=== PATIENT | female | born 1990 ===

== ENCOUNTER 2022-05-29 01:29 | Emergency (ER) | payer OTHER, SELFPAY ==
--- NOTE | ~2022-05-29 | XR_ITS ---
EXAMINATION: XR HAND, RIGHT CLINICAL INFORMATION: Right middle finger injury COMPARISON: None TECHNIQUE: PA, lateral, and oblique views of the right hand. FINDINGS: Imaging limited by patient cooperation. No fracture or dislocation. Alignment maintained. Joint spaces appear maintained. The soft tissues appear unremarkable. No radiopaque foreign body. XR/XR hand RT min 3V IMPRESSION: No fracture or malalignment. No radiopaque foreign body.
[2022-05-29 01:36] VITALS: BP 120/90; BP 135/85; PULSE 103; PULSE 120; RESP 18; TEMP 36.8; O2SAT 100; O2SAT 99; BMI 27.3
--- NOTE | 2022-05-29 02:01 | ED.WOUNDLAC ---
HPI - Wound/Laceration General Chief Complaint: Wound/Laceration Stated Complaint: lac on knuckles Time Seen by Provider: 05/29/22 01:56 Source: patient Mode of arrival: EMS Limitations: no limitations History of Present Illness HPI narrative: Patient apparently after having few drinks in anger was swinging metal isai and smashing car window somehow got superficial small laceration on the dorsum of the right middle finger Related Data Allergies Allergy/AdvReac Type Severity Reaction Status Date / Time No Known Allergies Allergy Unverified 01/24/20 19:07 [No Known Allergies*] Review of Systems Review of Systems: Yes all other systems are reviewed and are negative PMFSH Social History Social History Advance Directives: No Advance Directives Information Provided: No Physical Exam Vital Signs: Vital Signs: Last Vital Signs Temp 98.3 F 05/29/22 02:05 Pulse 106 H 05/29/22 02:05 Resp 18 05/29/22 02:05 BP 128/94 H 05/29/22 02:05 Pulse Ox 99 05/29/22 01:36 O2 Del Method 05/29/22 02:05 BMI result Body Mass Index 27.3 Appearance: Alert. Oriented X3. No acute distress. Intoxicated Eyes: PERRLA, No Nystagmus ENT: Pharynx normal. Oral Mucosa moist Neck: Normal inspection. Neck supple. CVS: Normal heart rate and rhythm. Pulses normal. Respiratory: No respiratory distress. Equal air entry bilateral, Abdomen: Soft and nontender. Bowel sounds are present, no mass palpable, no CVA tenderness Skin: Skin warm and dry. Normal skin color. Normal skin turgor. Extremities: No lower extremity edema. No calf tenderness right index finger 4 mm superficial laceration at dorsum of proximal interphalangeal joint Neuro: Oriented X 3. No motor deficit. Medical Decision Making Lab Data Labs: Lab Results 05/29/22 Range/Units 02:10 HIV 1&2 Ab/P24 Ag 4thGn Nonreactive (Nonreactive) Procedures Laceration Laceration 1: Site: hand (Third finger) Side (If applicable): right Size (cm): 0.3 Description: linear Depth: simple, single layer Technique: other (Dermabond) Discharge Plan Discharge Clinical Impression: Laceration, Avulsion of skin Patient Disposition: Home, Self-Care Instructions: Finger Laceration (ED) Additional Instructions: Local care as advised Wear the finger splint for support until he is completely Interventions: ED Discharge Assessment Last Done: 05/29/22 03:04 Discharge Date/Time: 05/29/22 03:04
[2022-05-29 02:05] VITALS: BP 128/94; PULSE 106; RESP 18; TEMP 36.8
--- NOTE | 2022-05-29 03:03 | PC.NURSE ---
Discharge instructions reviewed with pt. Pt verbalizes understanding.
[2022-05-29 03:07] LABS: HIV AB/AG Nonreactive (Nonreactive); HIV Num 1 0.06 S/CO (0.00-0.99)
[2022-05-29 09:05] LABS: HBc Num1 0.17 S/CO (0.00-0.79); HBsAGNum1 0.57 S/CO (0.00-0.99); Hepatitis B Core Antibody Nonreactive (Nonreactive); Hepatitis B Surface Antigen Negative (Negative); ~HepC Num1 0.09 S/CO (0.00-0.79)
[2022-05-29 09:33] LABS: HBS Num1 92.89 mIU/mL (0-7.99); ~Hepatitis B Surface Antibody REACTIVE (Nonreactive)
[2022-05-29 12:40] LABS: Hepatitis C Ab Exposure Source NonReactive (Nonreactive)
== END 2022-05-29 03:04 | disposition home or self-care (01) ==
PROVIDERS: Emergency Provider Internal Medicine
DX: S61.212A Laceration without foreign body of right middle finger without damage to nail, initial encounter (principal); W25.XXXA Contact with sharp glass, initial encounter; Y93.89 Activity, other specified; Y92.414 Local residential or business street as the place of occurrence of the external cause; Y99.9 Unspecified external cause status
CPT/HCPCS: 12001; 29130; 36415; 73130; 86803; 99283; 99284

== ENCOUNTER 2022-07-07 21:43 | Emergency (ER) | payer OTHER, SELFPAY ==
[2022-07-07 22:26] VITALS: BP 115/65; PULSE 72; RESP 16; TEMP 36.8; O2SAT 99; BMI 27.8
== END 2022-07-08 07:01 | disposition left against medical advice (07) ==
PROVIDERS: Emergency Provider Emergency Medicine; PCP Internal Medicine
DX: M54.50 Low back pain, unspecified (principal)
CPT/HCPCS: 99281

== ENCOUNTER 2023-11-11 18:05 | Emergency (ER) | payer MEDICAID, SELFPAY ==
[2023-11-11 18:12] VITALS: BP 125/81; PULSE 119; RESP 17; TEMP 37.6; O2SAT 98; BMI 34.5
--- NOTE | 2023-11-11 18:22 | ED_ITS ---
HPI - Nausea/Vomiting/Diarrhea General Chief complaint: Nausea/Vomiting/Diarrhea Stated complaint: Vomiting/Headache Time Seen by Provider: 11/11/23 19:29 Source: patient Mode of arrival: ambulatory Limitations: no limitations History of Present Illness ED Provider: Cary CRAVEN HPI Narrative: 32-year-old female presents with nausea, vomiting, fatigue, malaise, myalgias, headache (diffuse no visiual changes, dizziness, weakness or head trauma) , diarrhea, subjective fevers and chills all going on for the past week. Patient states she lives at home and has not had any sick contacts at home. Denies cp, nausea, vomiting, abd pain, vision changes, dizziness, weakness. NIHSS-0 Related Data Previous Rx's ?Medication ?Instructions ?Recorded acetaminophen 325 mg capsule 325 mg PO Q4H PRN pain #30 caps 11/11/23 (Tylenol) ibuprofen 600 mg tablet 600 mg PO Q6H PRN fever or pain 11/11/23 #30 tabs ondansetron 4 mg disintegrating 4 mg PO Q6H PRN nausea and 11/11/23 tablet vomiting #14 tabs Allergies Allergy/AdvReac Type Severity Reaction Status Date / Time No Known Allergies Allergy Verified 11/11/23 18:15 [No Known Allergies*] Review of Systems Review of Systems: Yes all other systems are reviewed and are negative PMFSH Past Medical History Attestation statement: The following information was validated with the patient. Source: old records reviewed and nursing notes reviewed Social History Social History Smoked in Last 30 Days: No Use of substances other than those prescribed or required for medical reasons: No Advance Directives: No Advance Directives Information Provided: No Do you have a plan to hurt others: No Plan Physical Exam Vital Signs: Vital Signs: Last Vital Signs Temp 99.6 F 11/11/23 19:37 Pulse 97 11/11/23 19:37 Resp 18 11/11/23 19:37 BP 119/83 11/11/23 19:37 Pulse Ox 98 11/11/23 19:37 O2 Del Method Room Air 11/11/23 19:37 BMI result Body Mass Index 34.5 vss - tachycardia 119 likely due to viral illness Appearance: Alert.? Oriented X3.? No acute distress.? Head: Normocephalic, atraumatic, no step-offs or deformities Eyes: Pupils equal, round and reactive to light.? Neck: Normal inspection.? Neck supple.? CVS: Normal heart rate and rhythm.? Pulses normal.? Respiratory: No respiratory distress.? Breath sounds normal.? Abdomen: Soft and nontender.? Skin: Skin warm and dry.? Normal skin color.? Normal skin turgor.? Extremities: No lower extremity edema.? No calf ttp. 5/5 strength to bilateral upper and lower extremities Neuro: Oriented X 3.? No motor deficit.? No sensory deficit. CN 2-12 intact . Normal [id number], [id number] steady tandem gait normal coordination. Course Course Course Narrative: This is an RME done by [facility]: Additional HPI, ROS, PE not included below will be deferred to primary provider. 32-year-old female presents with nausea, vomiting, fatigue, malaise, myalgias, headache, diarrhea all going on for the past week, sick contacts at home with similar symptoms. Appearance: Alert.? Oriented X3.? No acute cardiopulmonary distress distress.? Head: Normocephalic, atraumatic, no step-offs or deformities Neck: Normal inspection.? Neck supple.? CVS: Pulses normal.? Respiratory: No respiratory distress.? Abdomen: Soft and nontender.? Skin: ? Normal skin color. Extremities: 5/5 strength to bilateral upper and lower extremities Neuro: Oriented X 3.? No motor deficit.? No sensory deficit. Reevaluation(s) Reevaluation #1: Patient COVID positive. Will discharge with ibuprofen and Tylenol to the pharmacy. Educated patient on diagnosis and treatment plan, answered all question, patient verbalizes understanding. At this time patient will be discharged home, advised to return with new or worsening symptoms. Educated on worrisome signs and symptoms and when to return. At this time I feel comfortable discharge home. Time: 19:37 Reevaluation #2: Patient also reports 1 episode of nausea and vomiting this morning. Will send Zofran. Nontender abdomen. Time: 19:39 Medical Decision Making Medical Decision Making MDM Narrative: 32-year-old female presents with viral symptoms. Physical examination benign. On initial vitals patient tachycardic this is likely secondary to viral illness. History and physical exam concerning for flu versus COVID versus RSV. Unlikely meningitis, encephalitis. Unlikley pna, pe, acs. Plan- viral testing Differential Diagnosis Differential Diagnoses: The differential diagnosis associated with the presentation includes History and physical exam concerning for flu versus COVID versus RSV. Unlikely meningitis, encephalitis. Unlikley pna, pe, acs. Admission/Observation Consideration of admission/observation: Escalation of care including admission/observation considered No indicaiton Lab Data MDM Lab Attestation statement: I reviewed the patient's lab results. Labs: Lab Results 11/11/23 Range/Units 18:28 Influenza Type A (PCR) NEGATIVE (Negative) Influenza Type B (PCR) NEGATIVE (Negative) RSV RNA Qual (PCR) NEGATIVE (Negative) SARS-CoV-2 RNA (RT-PCR) POSITIVE A (Negative) External Record Review External record reviewed: Inpatient record, Office record, Outpatient record, Prior outpatient labs, Prior outpatient radiology and Primary care record Chronic Conditions Patient?s care impacted by: Other (obesity ) Critical Care Time Critical Care Time Critical Care Time: No Discharge Plan Discharge Clinical Impression: COVID-19 Patient Disposition: Home, Self-Care Instructions: COVID-19 (Coronavirus Disease 2019) (ED) Additional Instructions: Take your medications as prescribed. If you were prescribed antibiotics today, it is important that you take your medication to their entirety, do not skip any doses, do not finish them early. Today you tested positive for COVID-19. Take Ibuprofen or Tylenol as needed for fevers or body aches. Quarantine for 5 days and ensure you wear a mask. After 5 days you should wear a mask for 5 days after that. Practice social distancing and good hand hygiene. Drink plenty of fluids. Follow-up with your primary care provider this week. Return to the emergency department with new or worsening symptoms. In case of emergency call 911 You can purchase a pulse oximeter from your local pharmacy or grocery store, and monitor your oxygen saturation if it goes below 94% you should return to the emergency department for further evaluation. Prescriptions: New ibuprofen 600 mg tablet 600 mg PO Q6H PRN (Reason: fever or pain) Qty: 30 0RF acetaminophen [Tylenol] 325 mg capsule 325 mg PO Q4H PRN (Reason: pain) Qty: 30 0RF ondansetron 4 mg tablet,disintegrating 4 mg PO Q6H PRN (Reason: nausea and vomiting) Qty: 14 0RF Referrals: Melany Maya MD [Primary Care Provider] - 2 days Stand Alone Forms: Work/School Release Print Language: Armenian
[2023-11-11 19:28] LABS: Influenza A PCR NEGATIVE (Negative); Influenza B PCR NEGATIVE (Negative); Resp Syncy Virus RNA Qual PCR NEGATIVE (Negative); SARS COV2 PCR INHOUSE POSITIVE (Negative)
[2023-11-11 19:37] VITALS: BP 119/83; PULSE 97; RESP 18; TEMP 37.6; O2SAT 98
[2023-11-11 19:41] VITALS: BP 119/83; PULSE 97; RESP 18; TEMP 37.6; O2SAT 98
== END 2023-11-11 19:43 | disposition home or self-care (01) ==
PROVIDERS: Physician Assistant; Emergency Provider Emergency Medicine; PCP Internal Medicine
DX: U07.1 COVID-19 (principal); R00.0 Tachycardia, unspecified; R11.2 Nausea with vomiting, unspecified
CPT/HCPCS: 0241U; 99283

== ENCOUNTER 2023-11-19 22:13 | Emergency (ER) | payer OTHER, SELFPAY ==
[2023-11-19 22:24] VITALS: BP 117/79; PULSE 94; RESP 18; TEMP 36.6; O2SAT 100; BMI 33.6
[2023-11-19 22:45] LABS: MANUAL DIFF FLAG NO
[2023-11-19 22:46] LABS: Eosinophils Absolute Auto 0.2 X10*3/uL (0.0-0.4); Eosinophils Percent Auto 2.2 % (0-4); Hematocrit 37.9 % (37.0-47.0); Hemoglobin 12.5 g/dl (12.0-16.0); Imm Gran Abs Auto 0.04 X10*3/uL (0.00-0.03); Imm Gran Pct Auto 0.5 % (0.0-0.4); Lymphocytes Absolute Auto 2.3 X10*3/uL (1.2-4.9); Lymphocytes Percent Auto 30.1 % (20-40); Mean Corpuscular Hemoglobin 27.8 pg (27.0-33.0); Mean Corpuscular Volume 84.2 fL (80.0-98.0); Mean Platelet Volume 10.6 fL (9.4-12.3); Monocytes Absolute Auto 0.4 X10*3/uL (0.1-1.2); Monocytes Percent Auto 5.2 % (2-11); Neutrophils Absolute Auto 4.7 x10*3/uL (2.0-8.3); Platelet Count 204 X10*3/uL (160-400); Red Cell Distribution Width 13.7 % (11.0-16.0); White Blood Count 7.6 X10*3/uL (4.8-10.8)
[2023-11-19 23:05] LABS: Alanine Aminotransferase 12 U/L (0-31); Albumin Level 4.1 g/dL (3.5-5.0); Alkaline Phosphatase 88 U/L (39-117); Anion Gap 12 (12-20); Aspartate Amino Transferase 22 U/L (5-31); Bilirubin Direct 0.1 mg/dL (0.0-0.5); Bilirubin Total 0.3 mg/dL (0.0-1.0); Blood Urea Nitrogen 10 mg/dL (9-16); Calcium 9.1 mg/dL (8.4-10.2); Carbon Dioxide 22 mmol/L (22-29); Chloride 109 mmol/L (96-108); Creatinine Clr Calc Pharmacy 99.9; Estimated Glomerular Filt Rate > 60; Glucose Random 102 mg/dL (60-115); Lipase 12 U/L (8-78); Potassium 4.3 mmol/L (3.3-5.1); Sodium 139 mmol/L (135-145); Total Protein 7.2 g/dL (6.5-8.0)
[2023-11-19 23:10] LABS: B Type Natriuretic Peptide < 10 pg/mL (<100)
[2023-11-19 23:46] VITALS: BP 121/79; PULSE 81; RESP 16; TEMP 36.3; O2SAT 98
--- NOTE | 2023-11-20 01:29 | ED.GENADULT ---
HPI - General Adult General Chief complaint: General Medical Stated complaint: Feet swelling Time Seen by Provider: 11/20/23 01:04 Source: patient Mode of arrival: ambulatory Limitations: no limitations History of Present Illness ED Provider: Dr. Penelope Dill HPI narrative: Patient comes to the emergency room complaining of pain and blisters in both for and 5th toes of both feet. Patient states that she works for [employer], she has safety issues on for 12+ hours and they seem to be tied. Patient complaining of blisters also in the back of the feet Related Data Previous Rx's ?Medication ?Instructions ?Recorded acetaminophen 325 mg capsule 325 mg PO Q4H PRN pain #30 caps 11/11/23 (Tylenol) ibuprofen 600 mg tablet 600 mg PO Q6H PRN fever or pain 11/11/23 #30 tabs ondansetron 4 mg disintegrating 4 mg PO Q6H PRN nausea and 11/11/23 tablet vomiting #14 tabs bacitracin 500 unit/gram topical 1 appl topical QID #10 ea 11/20/23 packet Allergies Allergy/AdvReac Type Severity Reaction Status Date / Time No Known Allergies Allergy Verified 11/19/23 22:29 [No Known Allergies*] Review of Systems Review of Systems: Constitutional : No Weight loss, No Fever, No Chills, No Night Sweats, No Fatigue, No Malaise ENT/Mouth : No Hearing loss, No Ear Pain, No Nasal Congestion, No Sinus Pain, No Hoarseness, No sore throat, No Rhinorrhea, No Swallowing Difficulty Eyes: No Eye Pain, No Swelling, No Redness, No Foreign Body, No Discharge, No Vision Changes Cardiovascular : No Chest Pain, No SOB, No Dyspnea on Exertion, No Orthopnea, No Edema, No Palpitations Respiratory : No Cough, No Sputum, No Wheezing, No Smoke Exposure, No Dyspnea Gastrointestinal : No Nausea, No Vomiting, No Diarrhea, No Constipation, No abdominal Pain, No Hematochezia, No Melena Genitourinary : no irregular bleeding, No Dysuria, No Urinary Frequency, No Hematuria, No Urinary Incontinence, No Urgency, No Flank Pain, No Urinary Flow Changes, No Hesitancy Musculoskeletal : No joint pain, No Myalgias, No Joint Swelling Skin : Complaining of blisters in the 4th and 5th toes of both feet in the back of the heel Neuro : No Weakness, No Numbness, No Paresthesias, No Loss of Consciousness, No Dizziness, No Headache Psych : No Anxiety/Panic, No Depression, No SI/HI/AH/VH, No Social Issues, Heme/Lymph: No Bruising, No Bleeding,No Lymphadenopathy Endocrine : No Polyuria, No Polydipsia, No Temperature Intolerance [facility] Social History Social History Advance Directives: No Advance Directives Information Provided: No Do you have a plan to hurt others: No Plan Physical Exam ED Vital Signs: Vital Signs - 24 hr 11/19/23 22:24 11/19/23 23:46 Temperature 97.8 F 97.4 F Pulse Rate 94 81 Respiratory Rate 18 16 Blood Pressure 117/79 121/79 Pulse Oximetry 100 98 Oxygen Delivery Method Room Air Room Air BMI result Body Mass Index 33.6 Const Other: Appearance: Alert. Oriented X3. No acute distress. Eyes: Pupils equal, round and reactive to light. ENT: Pharynx normal. Neck: Normal inspection. Neck supple. No lymph nodes noted. No crepitus CVS: Normal heart rate and rhythm. Pulses normal. Normal S1 and S2 Respiratory: No respiratory distress. Breath sounds normal. No Wheezing. No rales Abdomen: Soft and nontender. No rigidity. No distention. Skin: Skin warm and dry. Normal skin color. Normal skin turgor. Extremities: No lower extremity edema. No Lacerations. No Rash, patient has an blister on the 5th toe of the right foot, mild swelling in the 4th toe of the right foot, and mouth swelling in the 4th and 5th toe of the left foot Neuro: Oriented X 3. No motor deficit. No sensory deficit. Moving all extremities. No slurred speech. CN 2 through 12 grossly intact Psych: calm, cooperative, normal affect Medical Decision Making Medical Decision Making MDM Narrative: -my interpretation of labs that were ordered in triage, normal hematology and chemistry, BNP within normal limits -feet are not swollen, only toes -I discussed with the patient that it shows that she is wearing at worker to tight, patient needs a bigger size to avoid constant friction of the shoe against the skin. Lab Data [facility] Lab Attestation statement: I reviewed the patient's lab results. 11/19/23 22:40 11/19/23 22:40 Labs: Lab Results 11/19/23 Range/Units 22:40 WBC 7.6 (4.8-10.8) X10*3/uL RBC 4.50 (4.20-5.50) X10*6/uL Hgb 12.5 (12.0-16.0) g/dl Hct 37.9 (37.0-47.0) % MCV 84.2 (80.0-98.0) fL MCH 27.8 (27.0-33.0) pg MCHC 33.0 (31.0-35.0) g/dl RDW 13.7 (11.0-16.0) % Plt Count 204 (160-400) X10*3/uL MPV 10.6 (9.4-12.3) fL Immature Gran % (Auto) 0.5 H (0.0-0.4) % Neut % (Auto) 62.0 (45-73) % Lymph % (Auto) 30.1 (20-40) % [place] % (Auto) 5.2 (2-11) % Eos % (Auto) 2.2 (0-4) % Baso % (Auto) 0.0 (0-2) % Lymph # (Auto) 2.3 (1.2-4.9) X10*3/uL [place] # (Auto) 0.4 (0.1-1.2) X10*3/uL Eos # (Auto) 0.2 (0.0-0.4) X10*3/uL Baso # (Auto) 0.0 (0.0-0.2) X10*3/uL Abs Immat Gran (auto) 0.04 H (0.00-0.03) X10*3/uL Absolute Neuts (auto) 4.7 (2.0-8.3) x10*3/uL Absolute Nucleated RBC 0.000 (0.0-0.012) X10*3/uL Nucleated RBC % (auto) 0.0 (0.0-0.2) /100WBC Sodium 139 (135-145) mmol/L Potassium 4.3 (3.3-5.1) mmol/L Chloride 109 H (96-108) mmol/L Carbon Dioxide 22 (22-29) mmol/L Anion Gap 12 (12-20) BUN 10 (9-16) mg/dL Creatinine 0.95 (0.5-1.4) mg/dL Estim Creat Clear Calc 99.9 Estimated GFR > 60 Random Glucose 102 (60-115) mg/dL Calcium 9.1 (8.4-10.2) mg/dL Total Bilirubin 0.3 (0.0-1.0) mg/dL Direct Bilirubin 0.1 (0.0-0.5) mg/dL AST 22 (5-31) U/L ALT 12 (0-31) U/L Alkaline Phosphatase 88 (39-117) U/L B-Natriuretic Peptide < 10 (<100) pg/mL Total Protein 7.2 (6.5-8.0) g/dL Albumin 4.1 (3.5-5.0) g/dL Lipase 12 (8-78) U/L Discharge Plan Discharge Clinical Impression: Blister of foot Patient Disposition: Home, Self-Care Instructions: Blister (ED) Additional Instructions: Please follow-up with your primary care physician tomorrow. If you have any worsening or new symptoms, please return to the emergency room or call 911 Prescriptions: New bacitracin 500 unit/gram packet 1 appl topical QID Qty: 10 0RF No Action ibuprofen 600 mg tablet 600 mg PO Q6H PRN (Reason: fever or pain) Qty: 30 0RF acetaminophen [Tylenol] 325 mg capsule 325 mg PO Q4H PRN (Reason: pain) Qty: 30 0RF ondansetron 4 mg tablet,disintegrating 4 mg PO Q6H PRN (Reason: nausea and vomiting) Qty: 14 0RF Stand Alone Forms: Work/School Release Print Language: Japanese
[2023-11-20 01:37] VITALS: BP 121/79; PULSE 81; RESP 16; TEMP 36.3; O2SAT 98
== END 2023-11-20 01:37 | disposition home or self-care (01) ==
PROVIDERS: Emergency Provider Emergency Medicine; PCP Internal Medicine
DX: S90.822A Blister (nonthermal), left foot, initial encounter (principal); S90.821A Blister (nonthermal), right foot, initial encounter; X50.1XXA Overexertion from prolonged static or awkward postures, initial encounter; Y93.89 Activity, other specified; Y92.59 Other trade areas as the place of occurrence of the external cause; Y99.0 Civilian activity done for income or pay
CPT/HCPCS: 36415; 80048; 80076; 83690; 83880; 85025; 99283

== ENCOUNTER 2024-01-06 16:29 | Inpatient (IN) | payer OTHER, SELFPAY ==
[2024-01-06 16:57] VITALS: BP 108/90; BP 109/75; PULSE 76; PULSE 91; RESP 18; TEMP 36.2; O2SAT 97; BMI 32.9
--- NOTE | 2024-01-06 17:35 | ED.GENADULT ---
HPI - General Adult General Chief complaint: Psychiatric Symptoms Stated complaint: From [facility] with plan, section 12, crisis Time Seen by Provider: 01/06/24 17:03 Source: patient and EMS Mode of arrival: EMS Limitations: no limitations History of Present Illness ED Provider: Gloria Haile PA-C HPI narrative: Patient is a 33 year old assigned female at with a history of psychiatric diagnoses presenting to the emergency department today with auditory hallucinations and suicidal ideation. Patient states that she is hearing voices to harm herself with a knife. Patient denies any dizziness, lightheadedness, abdominal pain, nausea, vomiting, fever, chills, blurry vision, double vision, loss of vision, chest pain, difficulty breathing, shortness of breath, back pain, night sweats, pain with urination, increased urinary frequency, increased urinary urgency, blood in her urine or stool, syncope or a near syncopal episode, recent trauma or falls, bowel incontinence, bladder incontinence, or any other complaints at this time. Relieving factors: none Exacerbating factors: none Associated symptoms: denies other symptoms Treatments prior to arrival: none Related Data Home Medications ?Medication ?Instructions ?Recorded ?Confirmed albuterol sulfate 90 mcg/actuation inhalation 01/06/24 aerosol inhaler (Ventolin HFA) amitriptyline 25 mg tablet 25 mg PO BEDTIME 01/06/24 01/06/24 budesonide-formoterol HFA 80 2 puff inhalation BID 01/06/24 01/06/24 mcg-4.5 mcg/actuation aerosol inhaler (Symbicort) celecoxib 100 mg capsule 100 mg PO BID 01/06/24 01/06/24 levothyroxine 25 mcg tablet 25 mcg PO DAILY 01/06/24 01/06/24 lidocaine 5 % topical patch 1 patch topical DAILY PRN mild pain 01/06/24 01/06/24 tizanidine 2 mg tablet PO 01/06/24 Allergies Allergy/AdvReac Type Severity Reaction Status Date / Time No Known Allergies Allergy Verified 01/06/24 17:01 [No Known Allergies*] Review of Systems Constitutional: Constitutional: Reports no additional constitutional complaints, Denies chills, Denies fever(s) and Denies night sweats Eyes: Eyes: Reports no additional eye complaints, Denies blurry vision, Denies change in vision, Denies diplopia, Denies eye discharge, Denies loss of vision and Denies eye pain ENT: Denies dizziness Cardiovascular: Cardiovascular: Reports no additional cardiovascular complaints, Denies chest pain, Denies lightheadedness, Denies Loss of Consciousness and Denies dyspnea Respiratory: Respiratory: Reports no additional respiratory complaints and Denies dyspnea Gastrointestinal: Gastrointestinal: Reports no additional gastrointestinal complaints, Denies abdominal pain, Denies melena, Denies hematochezia, Denies change in bowel habits and Denies change in stool character Genitourinary: Genitourinary: Denies hematuria, Denies urinary frequency, Denies dysuria, Denies urinary incontinence, Denies urinary hesitancy and Denies urinary urgency Musculoskeletal: Musculoskeletal: Reports no additional musculoskeletal complaints, Denies numbness and Denies tingling Neurologic: Denies dizziness, Denies loss of vision, Denies numbness and Denies tingling Psychiatric: Psychiatric: Reports anxiety, Reports auditory hallucinations, Denies homicidal ideation and Reports suicidal ideation Endocrine: Endocrine: Reports no additional endocrine complaints Hematologic/Lymphatic: Hematologic/Lymphatic: Reports no additional hematologic/lymphatic complaints Allergic/Immunologic: Allergic/Immunologic: Reports no additional allergic/immunologic complaints PMFSH Past Medical History Attestation statement: The following information was validated with the patient. Source: old records reviewed and nursing notes reviewed Social History Social History Smoked in Last 30 Days: Yes Use of substances other than those prescribed or required for medical reasons: No Advance Directives: No Advance Directives Information Provided: No Patient : No Physical Exam ED Vital Signs: Vital Signs - 24 hr 01/06/24 16:57 Temperature 97.1 F Pulse Rate 91 Respiratory Rate 18 Blood Pressure 109/75 Pulse Oximetry 97 Oxygen Delivery Method Room Air BMI result Body Mass Index 32.9 Const General: cooperative, no acute distress, alert and awake Nutritional Appearance: well nourished Orientation/consciousness: patient oriented x3 Limitations: no limitations HENMT Head: Yes normal to inspection and Yes atraumatic Ears: hearing grossly normal bilaterally and external ears normal General nose exam: Normal external nose present, no nasal discharge noted and no epistaxis Face and sinus: Yes normal facial exam, No abrasion and No laceration Mouth: Normal oral and palatal mucosa present, no drooling and no muffled voice Eyes General: appearance normal, both eyes and all related structures Periorbital: periorbital findings normal Eyelids: Yes eyelids normal Conjunctivae: conjunctivae normal Pupils: Equal, round and reactive pupils present EOM: EOMs intact bilaterally Neck Neck: Yes normal visual inspection, Yes full ROM and Yes no lymphadenopathy Chest Chest palpation & inspection: normal inspection of the chest Resp Effort & Inspection: normal respiratory effort and able to speak in complete sentences GI Inspection: Yes normal to inspection Neuro General: patient oriented x3 and moves all extremities Cranial nerves: Yes Equal, round and reactive pupils present Cognition (Neuro): normal cognition Extrem General: Yes normal to inspection, Yes full ROM and Yes capillary refill normal Psych Affect: Labile affect present Thought process: Circumstantial thought process present and Confabulating thought process present Thought content: Suicidality present and Hallucination(s) present auditory Medications Administered Discontinued Medications Generic Name Dose Route Start Last Admin Trade Name Freq PRN Reason Stop Dose Admin Lorazepam 2 mg 01/06/24 18:44 01/06/24 19:06 Lorazepam 1 Mg Tablet PO 01/06/24 18:45 2 mg ONCE ONE Administration Nicotine 14 mg 01/06/24 18:44 01/06/24 19:13 Nicotine 14 Mg Patch.Td24 TRANSDERMA 01/06/24 18:45 14 mg ONCE ONE Administration Nicotine Polacrilex 2 mg 01/06/24 18:44 01/06/24 19:06 Nicotine Polacrilex 2 Mg Gum BUCCAL 01/06/24 18:45 2 mg ONCE ONE Administration Medical Decision Making Medical Decision Making [facility] Narrative: Patient is a 33 year old assigned female at with a history of psychiatric diagnoses presenting to the emergency department today with suicidal ideation and auditory hallucinations. Patient's physical exam was as noted in the physical exam portion of this note. Patient's blood work was unremarkable. Patient's urine showed no acute process. I explained my physical exam findings as well as all test results to the patient. I answered all questions asked by the patient. Patient's disposition will be determined after CARE team evaluation. Patient in physician observation. Differential Diagnosis Differential Diagnoses: The differential diagnosis associated with the presentation includes Suicidal ideation Audtiory hallucinations Admission/Observation Consideration of admission/observation: Escalation of care including admission/observation considered Patient's disposition will be determined after CARE team evaluation. Lab Data [facility] Lab Attestation statement: I reviewed the patient's lab results. My interpretation of these results are in the MDM Rationale portion of this note. 01/06/24 17:42 01/06/24 17:42 Labs: Lab Results 01/06/24 01/06/24 Range/Units 17:32 17:42 WBC 10.8 (4.8-10.8) X10*3/uL RBC 4.49 (4.20-5.50) X10*6/uL Hgb 12.5 (12.0-16.0) g/dl Hct 39.3 (37.0-47.0) % MCV 87.5 (80.0-98.0) fL MCH 27.8 (27.0-33.0) pg MCHC 31.8 (31.0-35.0) g/dl RDW 14.0 (11.0-16.0) % Plt Count 244 (160-400) X10*3/uL MPV 10.7 (9.4-12.3) fL Immature Gran % (Auto) 0.6 H (0.0-0.4) % Neut % (Auto) 70.9 (45-73) % Lymph % (Auto) 22.8 (20-40) % [place] % (Auto) 4.5 (2-11) % Eos % (Auto) 0.9 (0-4) % Baso % (Auto) 0.3 (0-2) % Lymph # (Auto) 2.5 (1.2-4.9) X10*3/uL [place] # (Auto) 0.5 (0.1-1.2) X10*3/uL Eos # (Auto) 0.1 (0.0-0.4) X10*3/uL Baso # (Auto) 0.0 (0.0-0.2) X10*3/uL Abs Immat Gran (auto) 0.07 H (0.00-0.03) X10*3/uL Absolute Neuts (auto) 7.6 (2.0-8.3) x10*3/uL Absolute Nucleated RBC 0.000 (0.0-0.012) X10*3/uL Nucleated RBC % (auto) 0.0 (0.0-0.2) /100WBC Sodium 141 (135-145) mmol/L Potassium 4.2 (3.3-5.1) mmol/L Chloride 110 H (96-108) mmol/L Carbon Dioxide 27 (22-29) mmol/L Anion Gap 8 L (12-20) BUN 10 (9-16) mg/dL Creatinine 0.85 (0.5-1.4) mg/dL Estim Creat Clear Calc 109.4 Estimated GFR > 60 Random Glucose 100 (60-115) mg/dL Calcium 9.0 (8.4-10.2) mg/dL Total Bilirubin 0.3 (0.0-1.0) mg/dL AST 16 (5-31) U/L ALT 10 (0-31) U/L Alkaline Phosphatase 88 (39-117) U/L Total Protein 7.0 (6.5-8.0) g/dL Albumin 4.0 (3.5-5.0) g/dL Urine Color Yellow Urine Appearance Cloudy Urine pH 7.5 (5.0-9.0) Ur Specific [place] 1.015 (1.005-1.025) Urine Protein Negative (Neg-Trace) mg/dL Urine Glucose (UA) Negative (Negative) mg/dL Urine Ketones Negative (Negative) mg/dL Urine Blood Negative (Negative) Urine Nitrite Negative (Negative) Ur Leukocyte Esterase Negative (Negative) Urine Test NEGATIVE (NEGATIVE) Urine Opiates Screen Not Detected (Not Detect) Ur Buprenorphine Scrn Not Detected (Not Detect) ng/mL Ur Oxycodone Screen Not Detected (Not Detect) ng/mL Urine Methadone Screen Not Detected (Not Detect) ng/mL Urine Fentanyl Screen Not Detected (Not Detect) Ur Barbiturates Screen Not Detected (Not Detect) Ur Phencyclidine Scrn Not Detected (Not Detect) Ur Amphetamines Screen Not Detected (Not Detect) U Benzodiazepines Scrn Not Detected (Not Detect) Urine Cocaine Screen Not Detected (Not Detect) U Marijuana (THC) Screen Not Detected (Not Detect) Ethyl Alcohol < 10 mg/dL Independent Historian Clinical information obtained from an independent historian. History obtained from or confirmed by: EMS (EMS provided additional history and confirmed the history provided by the patient.) Discharge Plan Discharge Clinical Impression: Suicidal ideation, Auditory hallucination Patient Disposition: Still a Patient Prescriptions: No Action tizanidine 2 mg tablet PO levothyroxine 25 mcg tablet 25 mcg PO DAILY amitriptyline 25 mg tablet 25 mg PO BEDTIME lidocaine 5 % adhesive patch,medicated 1 patch topical DAILY PRN (Reason: mild pain) albuterol sulfate [Ventolin HFA] 90 mcg/actuation HFA aerosol inhaler inhalation celecoxib 100 mg capsule 100 mg PO BID budesonide-formoterol [Symbicort] 80-4.5 mcg/actuation HFA aerosol inhaler 2 puff INHALATION BID Interventions: [place]-Suicide Risk Severity Scale Last Done: 01/06/24 17:59 Print Language: Setswana
[2024-01-06 17:58] LABS: MANUAL DIFF FLAG NO
[2024-01-06 18:01] LABS: UPreg QC Valid YES; Urine Pregnancy NEGATIVE (NEGATIVE)
[2024-01-06 18:02] LABS: Appearance Urine Cloudy; Color Urine Yellow; Glucose Urine UA Negative (Negative); Leukocyte Esterase Urine Negative (Negative); Nitrite Urine Negative (Negative); PH 7.5 (5.0-9.0); Specific Gravity - Urine 1.015 (1.005-1.025); Urine Blood Negative (Negative); Urine Ketones Negative (Negative); Urine Protein Negative (Neg-Trace)
[2024-01-06 18:03] LABS: Amphetamine Screen Urine Not Detected (Not Detect); Barbiturates, Urine Not Detected (Not Detect); Benzodiazepines Screen Urine Not Detected (Not Detect); Buprenorphine Scr Not Detected (Not Detect); Cannabinoid Screen Urine Not Detected (Not Detect); Cocaine Screen Urine Not Detected (Not Detect); Fentanyl, urine Not Detected (Not Detect); Methadone Screen, Urine Not Detected (Not Detect); Opiate Screen Urine Not Detected (Not Detect); Oxycodone Screen Urine Not Detected (Not Detect); Phencyclidine Screen Urine Not Detected (Not Detect)
[2024-01-06 18:20] LABS: Alanine Aminotransferase 10 U/L (0-31); Alkaline Phosphatase 88 U/L (39-117); Anion Gap 8 (12-20); Aspartate Amino Transferase 16 U/L (5-31); Bilirubin Total 0.3 mg/dL (0.0-1.0); Blood Urea Nitrogen 10 mg/dL (9-16); Carbon Dioxide 27 mmol/L (22-29); Chloride 110 mmol/L (96-108); Creatinine Clr Calc Pharmacy 109.4; Estimated Glomerular Filt Rate > 60; Ethanol < 10 mg/dL; Glucose Random 100 mg/dL (60-115); Potassium 4.2 mmol/L (3.3-5.1); Sodium 141 mmol/L (135-145)
[2024-01-06 18:27] LABS: Basophils Percent Auto 0.3 % (0-2); Eosinophils Absolute Auto 0.1 X10*3/uL (0.0-0.4); Eosinophils Percent Auto 0.9 % (0-4); Hematocrit 39.3 % (37.0-47.0); Hemoglobin 12.5 g/dl (12.0-16.0); Imm Gran Abs Auto 0.07 X10*3/uL (0.00-0.03); Imm Gran Pct Auto 0.6 % (0.0-0.4); Lymphocytes Absolute Auto 2.5 X10*3/uL (1.2-4.9); Lymphocytes Percent Auto 22.8 % (20-40); Mean Corpuscular HGB Conc 31.8 g/dl (31.0-35.0); Mean Corpuscular Hemoglobin 27.8 pg (27.0-33.0); Mean Corpuscular Volume 87.5 fL (80.0-98.0); Mean Platelet Volume 10.7 fL (9.4-12.3); Monocytes Absolute Auto 0.5 X10*3/uL (0.1-1.2); Monocytes Percent Auto 4.5 % (2-11); Neutrophils Absolute Auto 7.6 x10*3/uL (2.0-8.3); Neutrophils Percent Auto 70.9 % (45-73); Platelet Count 244 X10*3/uL (160-400); Red Blood Count 4.49 X10*6/uL (4.20-5.50); White Blood Count 10.8 X10*3/uL (4.8-10.8)
[2024-01-06] MEDS: Nicotine Polacrilex 2 MG GUM BUCCAL (19:06)
[2024-01-06] MEDS: LORazepam 1 MG TABLET 2 MG PO (19:06)
[2024-01-06] MEDS: Nicotine 14 MG PATCH.TD24 TRANSDERMA (19:13)
--- NOTE | 2024-01-06 19:46 | PC.NURSE ---
patyient quiet and cooperative maintains safe behavior, seated in rear communal area playing cards with peer, had rec'd ativan for anxiety, appears in no distress
[2024-01-06] MEDS: Celecoxib 100 MG CAPSULE PO (21:25)
[2024-01-06] MEDS: Amitriptyline HCl 25 MG TABLET PO (21:25)
[2024-01-06 22:35] VITALS: BP 113/73; PULSE 111; RESP 18; TEMP 36.9; O2SAT 98
[2024-01-06 22:59] VITALS: BMI 34.0
[2024-01-07] MEDS: QUEtiapine Fumarate 200 MG TABLET PO (00:41)
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
[2024-01-07 08:29] LABS: Estimated Average Glucose 97 mg/dL
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
[2024-01-07 09:12] LABS: Vitamin B12 332 pg/mL (200-900)
[2024-01-07] MEDS: Celecoxib 100 MG CAPSULE PO ×2 (10:18→21:15)
[2024-01-07] MEDS: Levothyroxine Sodium 25 MCG TABLET PO (10:19)
[2024-01-07 10:20] LABS: Cholesterol 122 mg/dL (<200); HDL Cholesterol 29 mg/dL (>40); LDL Cholesterol Calculated 71 mg/dL (<100); Triglycerides 113 mg/dL (<150)
[2024-01-07] MEDS: Fluticasone/Vilanterol 100/25 BLST.W.DEV 1 PUFF INHALE (10:21)
[2024-01-07 10:34] LABS: Free T4 (Free Thyroxine) 0.74 ng/dL (0.71-1.85); Thyroid Stimulating Hormone 5.29 uIU/mL (0.32-4.0)
[2024-01-07 10:59] VITALS: BP 98/56; PULSE 94; RESP 18; TEMP 36.9; O2SAT 97
[2024-01-07] MEDS: QUEtiapine Fumarate 50 MG TABLET PO ×2 (12:48→21:15)
[2024-01-07] MEDS: Nicotine Polacrilex 2 MG GUM 4 MG BUCCAL (18:53)
[2024-01-07 18:57] VITALS: BP 112/72; PULSE 96; RESP 14; TEMP 36.7; O2SAT 99
[2024-01-07] MEDS: traZODone HCL 50 MG TABLET PO (21:15)
[2024-01-07] MEDS: Amitriptyline HCl 25 MG TABLET PO (21:19)
[2024-01-08 07:51] VITALS: BP 114/59; PULSE 81; RESP 18; TEMP 36.8; O2SAT 97
[2024-01-08] MEDS: Fluticasone/Vilanterol 100/25 BLST.W.DEV 1 PUFF INHALE (09:50)
[2024-01-08] MEDS: Nicotine 21 MG PATCH.TD24 TRANSDERMA (09:50)
[2024-01-08] MEDS: Celecoxib 100 MG CAPSULE PO ×2 (09:51→20:28)
[2024-01-08] MEDS: Levothyroxine Sodium 25 MCG TABLET PO (09:51)
[2024-01-08] MEDS: QUEtiapine Fumarate 50 MG TABLET PO (09:51)
--- NOTE | 2024-01-08 11:36 | HO.PSYCHPN ---
Subjective Subjective Date of Service: 01/08/24 Reason For Visit: Psychosis Interim History: Patient seen. Tolerating current Seroquel dose. Appears more pleasant and distracted today with AH. Isolates to her room and says she sleeps to get away from the voices. Denies active SI but reports ongoing AH. No VH. Review of Systems Constitutional: Reports no additional constitutional complaints, Denies chills, Denies fever(s) and Denies night sweats Eyes: Reports no additional eye complaints, Denies blurry vision, Denies change in vision, Denies diplopia, Denies eye discharge, Denies loss of vision and Denies eye pain Denies dizziness Cardiovascular: Reports no additional cardiovascular complaints, Denies chest pain, Denies lightheadedness, Denies Loss of Consciousness and Denies dyspnea Respiratory: Reports no additional respiratory complaints and Denies dyspnea Gastrointestinal: Reports no additional gastrointestinal complaints, Denies abdominal pain, Denies melena, Denies hematochezia, Denies change in bowel habits and Denies change in stool character Musculoskeletal: Reports no additional musculoskeletal complaints, Denies numbness and Denies tingling Denies dizziness, Denies loss of vision, Denies numbness and Denies tingling Psychiatric: Reports anxiety, Reports auditory hallucinations, Denies homicidal ideation and Reports suicidal ideation Endocrine: Reports no additional endocrine complaints Hematologic/Lymphatic: Reports no additional hematologic/lymphatic complaints Allergic/Immunologic: Reports no additional allergic/immunologic complaints Mental Status Exam Mental Status Exam Narrative: General appearance: Sitting in bed. Eye contact: intermittent. Intense. Looks to the side when talking about her hallucinations and referring to Maximo . Musculoskeletal: Normal muscle strength/tone, Normal gait and station, No abnormal involuntary movements like tremors, EPS or dyskinesia. No psychomotor agitation or retardation. Manner/behavior: guarded Speech:? Slow. Not elaborate. Impoverished. Language: No receptive or expressive language impairment? Mood and affect: Anxious. Affect: constricted range, congruent to mood and without lability? Thought process/associations: Answers appropriately. [place].?? Thought content: Paranoid. Hallucinations: auditory hallucinations. CAH. Suicidality/self-destructive behavior: SI without intent ? Homicidally/violence: none.? Reliability: fair.? ? Judgment: fair.? ? Insight: fair Cognition: Alert and oriented to time, place and person. Attention, concentration and fund of knowledge are normal.? Impulse control and emotional regulation: fair. Intelligence estimate: below average.? Diagnostics Vital Signs (24Hr): Vital Signs - 24 hr 01/07/24 18:57 01/08/24 07:51 Temperature 98.1 F 98.3 F Pulse Rate 96 81 Respiratory Rate 14 18 Blood Pressure 112/72 114/59 L Pulse Oximetry 99 97 Oxygen Delivery Method Room Air Room Air BMI result Body Mass Index 34.0 Labs 01/06/24 17:42 01/06/24 17:42 Labs: Laboratory Results - last 48 hr 01/06/24 01/06/24 01/07/24 17:32 17:42 08:10 WBC 10.8 RBC 4.49 Hgb 12.5 Hct 39.3 MCV 87.5 MCH 27.8 MCHC 31.8 RDW 14.0 Plt Count 244 MPV 10.7 Immature Gran % (Auto) 0.6 H Neut % (Auto) 70.9 Lymph % (Auto) 22.8 [place] % (Auto) 4.5 Eos % (Auto) 0.9 Baso % (Auto) 0.3 Lymph # (Auto) 2.5 [place] # (Auto) 0.5 Eos # (Auto) 0.1 Baso # (Auto) 0.0 Abs Immat Gran (auto) 0.07 H Absolute Neuts (auto) 7.6 Absolute Nucleated RBC 0.000 Nucleated RBC % (auto) 0.0 Sodium 141 Potassium 4.2 Chloride 110 H Carbon Dioxide 27 Anion Gap 8 L BUN 10 Creatinine 0.85 Estim Creat Clear Calc 109.4 Estimated GFR > 60 Random Glucose 100 Estimat Average Glucose 97 Hemoglobin A1c % 5.0 Calcium 9.0 Magnesium 2.0 Total Bilirubin 0.3 AST 16 ALT 10 Alkaline Phosphatase 88 Total Protein 7.0 Albumin 4.0 Triglycerides 113 Cholesterol 122 LDL Cholesterol, Calc 71 HDL Cholesterol 29 L Vitamin B12 332 Folate 11.0 TSH 5.29 H Free T4 0.74 Urine Color Yellow Urine Appearance Cloudy Urine pH 7.5 Ur Specific [place] 1.015 Urine Protein Negative Urine Glucose (UA) Negative Urine Ketones Negative Urine Blood Negative Urine Nitrite Negative Ur Leukocyte Esterase Negative Urine Test NEGATIVE Urine Opiates Screen Not Detected Ur Buprenorphine Scrn Not Detected Ur Oxycodone Screen Not Detected Urine Methadone Screen Not Detected Urine Fentanyl Screen Not Detected Ur Barbiturates Screen Not Detected Ur Phencyclidine Scrn Not Detected Ur Amphetamines Screen Not Detected U Benzodiazepines Scrn Not Detected Urine Cocaine Screen Not Detected U Marijuana (THC) Screen Not Detected Ethyl Alcohol < 10 Medications Medications Current Medications Acetaminophen (Acetaminophen 325 Mg Tablet) 650 mg PO Q6H PRN PRN Reason: Headache/Pain Mild Scale (1-3) Al Hydroxide/Mg Hydroxide (Magnesium Hydrox/Alum Hydrox 30 Ml Oral.Susp) 30 ml PO Q6H PRN PRN Reason: Heartburn/Nausea Amitriptyline HCl (Amitriptyline Hcl 25 Mg Tablet) 25 mg PO BEDTIME [facility] Last Admin: 01/07/24 21:19 Dose: 25 mg Celecoxib (Celecoxib 100 Mg Capsule) 100 mg PO BID [facility] Last Admin: 01/08/24 09:51 Dose: 100 mg Fluticasone/Vilanterol (Fluticasone/Vilanterol 100/25 Blst.W.Dev) 1 puff INHALE RDAILY [facility] Last Admin: 01/08/24 09:50 Dose: 1 puff Hydroxyzine HCl (Hydroxyzine Hcl 25 Mg Tablet) 25 mg PO Q6H PRN PRN Reason: Anxiety Levothyroxine Sodium (Levothyroxine Sodium 25 Mcg Tablet) 25 mcg PO DAILY [facility] Last Admin: 01/08/24 09:51 Dose: 25 mcg Lidocaine (Lidocaine 4 % Patch Adh..Patch) 1 patch TRANSDERMA DAILY PRN PRN Reason: mild pain Magnesium Hydroxide (Milk Of Magnesia 30 Ml Oral.Susp) 30 ml PO DAILY PRN PRN Reason: Constipation Nicotine (Nicotine 21 Mg Patch.Td24) 21 mg TRANSDERMA DAILY PRN PRN Reason: nicotine cravings Last Admin: 01/08/24 09:50 Dose: 21 mg Nicotine Polacrilex (Nicotine Polacrilex 2 Mg Gum) 4 mg BUCCAL Q2H PRN PRN Reason: Nicotine Cravings Last Admin: 01/07/24 18:53 Dose: 4 mg Olanzapine (Olanzapine 5 Mg Tablet) 5 mg PO Q4H PRN PRN Reason: psychosis, agitation Quetiapine Fumarate (Quetiapine Fumarate 50 Mg Tablet) 50 mg PO BID [facility] Last Admin: 01/08/24 09:51 Dose: 50 mg Trazodone HCl (Trazodone Hcl 50 Mg Tablet) 50 mg PO BEDTIME MRX1 PRN PRN Reason: Insomnia Last Admin: 01/07/24 21:15 Dose: 50 mg Allergies Allergies Allergy/AdvReac Type Severity Reaction Status Date / Time aspirin Allergy Unknown Unknown Verified 01/06/24 21:56 Assessment & Plan Assessment & Plan (1) Psychosis: Status: Acute Code(s): F29 - Unspecified psychosis not due to a substance or known physiological condition Assessment and Plan: 33 yo female admitted due to SI with a plan to stab herself with a knife due to increased AH. Plan: - Admit to inpatient psychiatry - CV - Collateral information from family and providers. - Milieu treatment and group therapy. - Medications: Start Seroquel 50 mg BID and titrate. - Social work evaluation. - Disposition planning. 01/07: Increase Seroquel to 100 mg BID and change PRN Zyprexa to Seroquel 50 mg TID PRN hallucinations. Otherwise continue current management and treatment plan. Reason for continued inpatient stay Substantial Risk for: harm to self, inability to function and rapid decompensation Time Spent With Patient Time: Total time managing care of this patient today ____ minutes.
[2024-01-08] MEDS: Nicotine Polacrilex 2 MG GUM 4 MG BUCCAL (18:49)
[2024-01-08 20:00] VITALS: BP 110/67; PULSE 93; RESP 18; TEMP 37; O2SAT 99
[2024-01-08] MEDS: QUEtiapine Fumarate 100 MG TABLET PO (20:28)
[2024-01-08] MEDS: Amitriptyline HCl 25 MG TABLET PO (20:29)
[2024-01-08] MEDS: traZODone HCL 50 MG TABLET PO (20:29)
[2024-01-09 07:30] VITALS: BP 119/72; PULSE 77; RESP 14; TEMP 36.9; O2SAT 98
[2024-01-09] MEDS: QUEtiapine Fumarate 100 MG TABLET PO ×2 (09:21→20:21)
[2024-01-09] MEDS: Celecoxib 100 MG CAPSULE PO ×2 (09:22→20:22)
[2024-01-09] MEDS: Fluticasone/Vilanterol 100/25 BLST.W.DEV 1 PUFF INHALE (09:22)
[2024-01-09] MEDS: Levothyroxine Sodium 25 MCG TABLET PO (09:22)
[2024-01-09] MEDS: Nicotine Polacrilex 2 MG GUM 4 MG BUCCAL (10:19)
[2024-01-09] MEDS: Nicotine 21 MG PATCH.TD24 TRANSDERMA (10:19)
--- NOTE | 2024-01-09 11:13 | HO.PSYCHPN ---
Subjective Subjective Date of Service: 01/09/24 Reason For Visit: Psychosis Interim History: Patient seen with orthopedically impaired teacher. Feels much better today she says. Denies AH. Feels Seroquel has been helpful. Appears less anxious and has a brighter affect. Tolerating current Seroquel dose. More visible on the unit. Denies active SI. No VH. Asking about DC. Review of Systems Constitutional: Reports no additional constitutional complaints, Denies chills, Denies fever(s) and Denies night sweats Eyes: Reports no additional eye complaints, Denies blurry vision, Denies change in vision, Denies diplopia, Denies eye discharge, Denies loss of vision and Denies eye pain Denies dizziness Cardiovascular: Reports no additional cardiovascular complaints, Denies chest pain, Denies lightheadedness, Denies Loss of Consciousness and Denies dyspnea Respiratory: Reports no additional respiratory complaints and Denies dyspnea Gastrointestinal: Reports no additional gastrointestinal complaints, Denies abdominal pain, Denies melena, Denies hematochezia, Denies change in bowel habits and Denies change in stool character Musculoskeletal: Reports no additional musculoskeletal complaints, Denies numbness and Denies tingling Denies dizziness, Denies loss of vision, Denies numbness and Denies tingling Psychiatric: Reports anxiety, Reports auditory hallucinations, Denies homicidal ideation and Reports suicidal ideation Endocrine: Reports no additional endocrine complaints Hematologic/Lymphatic: Reports no additional hematologic/lymphatic complaints Allergic/Immunologic: Reports no additional allergic/immunologic complaints Mental Status Exam Mental Status Exam Narrative: General appearance: Sitting in bed. Eye contact: intermittent. Intense. Looks to the side when talking about her hallucinations and referring to Maximo . Musculoskeletal: Normal muscle strength/tone, Normal gait and station, No abnormal involuntary movements like tremors, EPS or dyskinesia. No psychomotor agitation or retardation. Manner/behavior: guarded Speech:? Slow. Not elaborate. Impoverished. Language: No receptive or expressive language impairment? Mood and affect: Anxious. Affect: constricted range, congruent to mood and without lability? Thought process/associations: Answers appropriately. [place].?? Thought content: Paranoid. Hallucinations: auditory hallucinations. CAH. Suicidality/self-destructive behavior: SI without intent ? Homicidally/violence: none.? Reliability: fair.? ? Judgment: fair.? ? Insight: fair Cognition: Alert and oriented to time, place and person. Attention, concentration and fund of knowledge are normal.? Impulse control and emotional regulation: fair. Intelligence estimate: below average.? Diagnostics Vital Signs (24Hr): Vital Signs - 24 hr 01/08/24 20:00 01/09/24 07:30 Temperature 98.6 F 98.4 F Pulse Rate 93 77 Respiratory Rate 18 14 Blood Pressure 110/67 119/72 Pulse Oximetry 99 98 Oxygen Delivery Method Room Air Room Air BMI result Body Mass Index 34.0 Labs 01/06/24 17:42 01/06/24 17:42 Medications Medications Current Medications Acetaminophen (Acetaminophen 325 Mg Tablet) 650 mg PO Q6H PRN PRN Reason: Headache/Pain Mild Scale (1-3) Al Hydroxide/Mg Hydroxide (Magnesium Hydrox/Alum Hydrox 30 Ml Oral.Susp) 30 ml PO Q6H PRN PRN Reason: Heartburn/Nausea Amitriptyline HCl (Amitriptyline Hcl 25 Mg Tablet) 25 mg PO BEDTIME [facility] Last Admin: 01/08/24 20:29 Dose: 25 mg Celecoxib (Celecoxib 100 Mg Capsule) 100 mg PO BID [facility] Last Admin: 01/09/24 09:22 Dose: 100 mg Fluticasone/Vilanterol (Fluticasone/Vilanterol 100/25 Blst.W.Dev) 1 puff INHALE RDAILY [facility] Last Admin: 01/09/24 09:22 Dose: 1 puff Hydroxyzine HCl (Hydroxyzine Hcl 25 Mg Tablet) 25 mg PO Q6H PRN PRN Reason: Anxiety Levothyroxine Sodium (Levothyroxine Sodium 25 Mcg Tablet) 25 mcg PO DAILY [facility] Last Admin: 01/09/24 09:22 Dose: 25 mcg Lidocaine (Lidocaine 4 % Patch Adh..Patch) 1 patch TRANSDERMA DAILY PRN PRN Reason: mild pain Magnesium Hydroxide (Milk Of Magnesia 30 Ml Oral.Susp) 30 ml PO DAILY PRN PRN Reason: Constipation Nicotine (Nicotine 21 Mg Patch.Td24) 21 mg TRANSDERMA DAILY PRN PRN Reason: nicotine cravings Last Admin: 01/09/24 10:19 Dose: 21 mg Nicotine Polacrilex (Nicotine Polacrilex 2 Mg Gum) 4 mg BUCCAL Q2H PRN PRN Reason: Nicotine Cravings Last Admin: 01/09/24 10:19 Dose: 4 mg Quetiapine Fumarate (Quetiapine Fumarate 100 Mg Tablet) 100 mg PO BID [facility] Last Admin: 01/09/24 09:21 Dose: 100 mg Quetiapine Fumarate (Quetiapine Fumarate 50 Mg Tablet) 50 mg PO TID PRN PRN Reason: hallucinations Trazodone HCl (Trazodone Hcl 50 Mg Tablet) 50 mg PO BEDTIME MRX1 PRN PRN Reason: Insomnia Last Admin: 01/08/24 20:29 Dose: 50 mg Allergies Allergies Allergy/AdvReac Type Severity Reaction Status Date / Time aspirin Allergy Unknown Unknown Verified 01/06/24 21:56 Assessment & Plan Assessment & Plan (1) Psychosis: Status: Acute Code(s): F29 - Unspecified psychosis not due to a substance or known physiological condition Assessment and Plan: 33 yo female admitted due to SI with a plan to stab herself with a knife due to increased AH. Plan: - Admit to inpatient psychiatry - CV - Collateral information from family and providers. - Milieu treatment and group therapy. - Medications: Start Seroquel 50 mg BID and titrate. - Social work evaluation. - Disposition planning. 01/07: Increase Seroquel to 100 mg BID and change PRN Zyprexa to Seroquel 50 mg TID PRN hallucinations. Otherwise continue current management and treatment plan. 01/08: Continue current management and treatment plan. Reason for continued inpatient stay Substantial Risk for: harm to self, inability to function and rapid decompensation Time Spent With Patient Time: Total time managing care of this patient today ____ minutes.
[2024-01-09 20:00] VITALS: BP 100/60; PULSE 96; RESP 18; TEMP 36.9; O2SAT 99
[2024-01-09] MEDS: Amitriptyline HCl 25 MG TABLET PO (20:21)
[2024-01-09] MEDS: traZODone HCL 50 MG TABLET PO (20:21)
[2024-01-10 08:57] VITALS: BP 112/62; PULSE 81; RESP 18; TEMP 36.9; O2SAT 100
[2024-01-10] MEDS: Levothyroxine Sodium 25 MCG TABLET PO (08:59)
[2024-01-10] MEDS: Celecoxib 100 MG CAPSULE PO ×2 (08:59→22:10)
[2024-01-10] MEDS: Fluticasone/Vilanterol 100/25 BLST.W.DEV 1 PUFF INHALE (09:00)
[2024-01-10] MEDS: QUEtiapine Fumarate 100 MG TABLET PO ×2 (09:00→22:10)
--- NOTE | 2024-01-10 11:14 | MHC.RECOVRN ---
AUDIT-C Brief Intervention Pt had positive screen for unhealthy alcohol use on admission. Attempted to meet with pt to discuss alcohol use and offer resources, pt declined.
[2024-01-10] MEDS: Nicotine 21 MG PATCH.TD24 TRANSDERMA (11:56)
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
[2024-01-10 20:11] VITALS: BP 120/76; PULSE 100; RESP 16; TEMP 36.8; O2SAT 99
[2024-01-10] MEDS: Amitriptyline HCl 25 MG TABLET PO (22:10)
[2024-01-10] MEDS: traZODone HCL 50 MG TABLET PO (22:10)
[2024-01-11 08:00] VITALS: BP 100/63; PULSE 83; RESP 18; TEMP 36.4; O2SAT 98
[2024-01-11] MEDS: Celecoxib 100 MG CAPSULE PO (09:12)
[2024-01-11] MEDS: Fluticasone/Vilanterol 100/25 BLST.W.DEV 1 PUFF INHALE (09:12)
[2024-01-11] MEDS: Levothyroxine Sodium 25 MCG TABLET PO (09:12)
[2024-01-11] MEDS: QUEtiapine Fumarate 100 MG TABLET PO (09:12)
[2024-01-11] MEDS: Nicotine 21 MG PATCH.TD24 TRANSDERMA (09:16)
== END 2024-01-11 10:17 | disposition home or self-care (01) | DRG 751 ==
LOC: HO.ED 20:24 → HO.PM5 22:04 → HO.PADLT16 22:40
PROVIDERS: Physician Assistant Medical; Admitting Provider Clinical Nurse Specialist Psychiatric/Mental Health, Adult; Emergency Provider Emergency Medicine Emergency Medical Services; Visit Provider Psychiatry & Neurology Psychiatry
DX: F29 Unspecified psychosis not due to a substance or known physiological condition (principal); R45.851 Suicidal ideations; F17.210 Nicotine dependence, cigarettes, uncomplicated; Z71.6 Tobacco abuse counseling; Z79.890 Hormone replacement therapy; Z79.899 Other long term (current) drug therapy
CPT/HCPCS: 36415; 80053; 80061; 80307; 81003; 81025; 82607; 82746; 83036; 83735; 84439; 84443; 85025; 99285

== ENCOUNTER → 2024-01-06 22:00 | Outpatient (BNV) | payer OTHER, SELFPAY | PROVIDERS: Admitting Provider Clinical Nurse Specialist Psychiatric/Mental Health, Adult; Emergency Provider Emergency Medicine Emergency Medical Services; Visit Provider Psychiatry & Neurology Psychiatry | DX: F29 Unspecified psychosis not due to a substance or known physiological condition (principal) | CPT/HCPCS: 99231; 99232 ==